=== PATIENT | female | born 1935 | race Caucasian/White ===

== ENCOUNTER 2018-06-11 11:25 | Outpatient (CLI) | payer OTHER ==
[2018-06-11 12:32] LABS: BASOPHILS % 0.9 (0.0-1.5); EOSINOPHILS % 2.5 % (0.0-6.8); MEAN CORPUSCULAR HEMOGLOBIN 30.2 pg (28.0-34.0); MEAN CORPUSCULAR VOLUME 94.6 fl (80.0-100.0); MONOCYTES % 6.2 % (0.0-11.0); NEUTROPHILS # 3.8 # k/uL (1.4-7.7)
[2018-06-11 12:57] LABS: eGFR (African) > 60; eGFR (Non-African) > 60
== END 2018-06-11 11:26 ==
LOC: LAB 11:25
PROVIDERS: ATTEND Family Medicine
DX: I10 Essential (primary) hypertension (principal)
CPT/HCPCS: 36415; 80053; 85025

== ENCOUNTER 2018-06-16 08:25 | Day surgery (SDC) | payer OTHER ==
[2018-06-16] MEDS ORDERED: SALINE FLUSH 10 ML DISP.SYRIN IVF ONE (09:00)
[2018-06-16] MEDS ORDERED: LIDOCAINE HCL/PF 2% 100 MG/5 ML VIAL IJ ONE (09:00)
[2018-06-16] MEDS ORDERED: LACTATED RINGERS 1,000 ML IV.SOLN IV ONE (09:00)
[2018-06-16] MEDS ORDERED: PROPOFOL 200 MG/20 ML VIAL IV ONE (09:00)
--- NOTE | 2018-06-17 13:03 | GI Report ---
REFERRING PHYSICIAN: Dr. Moises Allen DOCKET CLERK: Akbar Rosenberg MD PROCEDURE MEDICATION: Propofol as per anesthesia. INDICATIONS: Patient is an 82-year-old woman who had a stricture dilated about 6 years ago. She states she has had recurrent solid food dysphagia and comes in for an evaluation. She has occasional heartburn. She denies any shortness of breath or a cough. She is 5 feet and weighs 73 kilograms and carries that centrally. PROCEDURE PERFORMED: Endoscopy and esophageal dilatation and biopsies. PROCEDURE: An Olympus video endoscope is passed through the esophagus under direct visualization. She does have a benign-appearing stricture at the GE junction and some distal esophagitis and a small hiatal hernia. Fundus, body, and antrum of the stomach with mild gastritis. Duodenum is fairly inflamed, erythematous, and friable. A guidewire is placed in the stomach. Endoscope is removed and up to a 16 mm Savory-Saima dilator was passed over the guidewire without difficulty. The endoscope was reintroduced. There was some bleeding where the stricture was stretched. We also did biopsy the stricture, though grossly looks benign. Patient tolerated the procedure well. FINDINGS: 1. 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 2. Distal esophagitis, biopsied. 3. Duodenitis and gastritis. RECOMMENDATION: 1. She needs to be on a PPI daily, like 20 mg of omeprazole or Protonix. 2. Small frequent meals. 3. Do not eat late at night. 4. Avoid cold liquids with meals. 5. She should follow up with Dr. Allen. cc: Dr. Moises MURRY
== END 2018-06-16 08:26 ==
LOC: OPSURG 08:25
PROVIDERS: ATTEND Internal Medicine Gastroenterology
DX: K22.2 Esophageal obstruction (principal); K20.8 Other esophagitis; K29.80 Duodenitis without bleeding; K29.70 Gastritis, unspecified, without bleeding
CPT/HCPCS: 43239; 43248; J2001; J2704; J7120; S1016

== ENCOUNTER 2019-04-13 14:18 | Outpatient (CLI) | payer OTHER ==
[2019-04-13 14:50] LABS: BASOPHILS % 0.8 % (0.0-1.5); NEUTROPHILS # 4.6 # k/uL (1.4-7.7)
--- NOTE | 2019-04-13 15:21 | Diagnostic Imaging Report ---
LYNN MARINA [facility] [address] [facility] [address] [address] Report Submission Date: Apr 13, 2019 3:19:27 PM CDT Patient Study Name: PIETER BOOTHE Date: Apr 13, 2019 2:39:18 PM CDT Modality Type: DX Gender: F Description: CHEST 2VIEW : 31 Institution: [facility] Physician: LYNN MARINA Exam: Chest two views. History: Chest pain. No previous studies are available for comparison. Lung kaur are well aerated without diana consolidation or effusion. Heart and mediastinal contour are normal. Degenerate changes in thoracic spine are seen. Impression: No diana consolidation or effusion. Electronically signed on Apr 13, 2019 3:19:27 PM CDT by: Bc MURRY
[2019-04-13 15:28] LABS: eGFR (Non-African) > 60
== END 2019-04-13 14:20 ==
LOC: LAB 14:18
PROVIDERS: ATTEND Family Medicine
DX: I10 Essential (primary) hypertension (principal)
CPT/HCPCS: 36415; 71046; 80053; 85025